=== PATIENT | female | born 1950 | race Two or more races ===

== ENCOUNTER → 2017-11-15 | Outpatient (CLI) | payer OTHER | END | disposition home or self-care (01) | LOC: RAD 11:31 | DX: M19.012 Primary osteoarthritis, left shoulder (principal); M89.8X1 Other specified disorders of bone, shoulder; R07.9 Chest pain, unspecified | CPT/HCPCS: 71046; 73000; 73030 ==

== ENCOUNTER → 2017-11-28 | Outpatient (CLI) | payer OTHER | END | disposition home or self-care (01) | LOC: MAMMO 09:55 | DX: N64.4 Mastodynia (principal) | CPT/HCPCS: 76641; 77066 ==